=== PATIENT | female | born 1950 | race Caucasian/White ===

== ENCOUNTER 2018-06-30 12:12 | Inpatient (IN) | payer MEDICARE, OTHER | END 2018-07-02 16:10 | disposition home or self-care (01) | LOC: ER 12:12 → SUR 3N 16:19 → ORTHO 4S 18:28 | DX: R55 Syncope and collapse (principal); Z86.73 Personal history of transient ischemic attack (TIA), and cerebral infarction without residual deficits; I10 Essential (primary) hypertension ==